=== PATIENT | female | born 1950 | race Caucasian/White ===

== ENCOUNTER 2017-08-11 16:52 | Emergency (ER) | payer MEDICAID, OTHER ==
--- NOTE | 2017-08-11 17:25 | EDPHY ---
General - History Smoking Status: Former smoker Time Seen by Provider: 08/11/17 17:17 Narrative: CHIEF COMPLAINT: Dizzy, nausea, vomiting, short of breath HISTORY OF PRESENT ILLNESS: Patient presents by private vehicle with complaint of dizziness, nausea, vomiting, shortness of breath and sweating. The symptoms started abruptly this morning around 5:00 a.m.. She had just woken ambulated. She does describe this as a spinning dizziness sensation she has no chest pain but does have some shortness of breath. No cough. No headache. No neck pain or stiffness. No fever. She has no abdominal pain. No diarrhea constipation. No trauma or injury. She says that the symptoms are worsening with movement at times. There is no alleviating factor. No numbness, tingling or weakness. No unilateral complaints. No other associated complaints or modifying factors. REVIEW OF SYSTEMS: Ten systems reviewed and are negative unless otherwise noted in the HPI PCP: [facility] SPECIALISTS: [facility] PAST MEDICAL HISTORY: Hypertension, dyslipidemia PAST SURGICAL HISTORY: Tonsillectomy and hysterectomy remotely SOCIAL HISTORY: Never smoker. Occasional marijuana use. Retired lives here independently. FAMILY HISTORY: Noncontributory EXAMINATION General Appearance: Alert, no distress. Diaphoretic. Well-developed well- nourished. Head: normocephalic, atraumatic Eyes: Pupils equal and round, no conjunctival pallor or injection. Mild horizontal nystagmus without any vertical nystagmus. No dysconjugate gaze. EOMs are symmetric. ENT, Mouth: Mucous membranes moist Neck: Normal inspection, supple, non-tender Respiratory: Mildly tachypneic. Lungs are clear with out any wheezing, rhonchi or crackles. Cardiovascular: Regular rate and rhythm. No murmur. Gastrointestinal: Abdomen is soft and nontender. Bowel sounds are auscultated in all 4 quadrants. There is no tympany. No rigidity. No guarding. No distention. Back: non-tender, no bony abnormalities Neurological: GCS 15. A&O, nonfocal, strength is symmetric in all limbs. no pronator drift. normal finger to nose. NIH scale 0. Skin: Warm and diaphoretic. Grossly intact. No petechiae or purpura. Extremities: Nontender, no pedal edema Psychiatric: Anxious Mood and affect DIFFERENTIAL DIAGNOSES: Including but not limited to vertigo, CVA, TIA, small-bowel obstruction, dehydration, ACS, pneumonia MDM: 5:20 p.m. Nausea, vomiting, shortness of breath since 5:00 a.m. This morning. She does have mild tachypnea but she is afebrile, she is not tachycardic. She is awake alert no acute distress but her blood pressure is elevated but she has no headache. She does have some dizziness with this, thus I have ordered cardiac workup and have discussed with Dr. Carr. He will evaluate the patient. Neuro exam is well within normal limits with horizontal nystagmus only. 5:55 p.m. Patient has been evaluated by Dr. Carr. She has provided more information and pertain to a chiropractic adjustment last week, and she is now complaining of headache and some neck pain. He recommends CT head and CT angio of head and neck. 6:58 p.m Case discussed with radiologist Dr. Ramires. CT scans of the head, angiography of the head and neck reveal no acute findings. There is some disc bulge at C4-5 , 5-6. 7:15 p.m. Patient re-evaluated. Her urinalysis does show concentration dehydration, thus I have ordered IV fluid. She states she is feeling somewhat better but not resolved. No vomiting in the past 30 min. I have ordered 0.5 Ativan IV. Her pressure is still slightly elevated, but she denies any headache or chest pain. I have discussed this with Dr. Carr. We will evaluate for response to Ativan fluid. 8:08 p.m. Patient re-evaluated. She has received 0.5 Ativan IV, 500 mL of normal saline IV. She is feeling significantly better and her blood pressure has decreased to 166mmHg systolic without any antihypertensives. She has no headache. She has no chest pain. She has ambulated in the emergency department with minimal nausea. She would like to go home and I do feel she is stable to do so. We will treat her with meclizine and low-dose Ativan. We discussed contacting her [place] physician 1st thing in the morning for evaluation tomorrow without fail. We discussed returning here for symptoms are not completely resolved by tomorrow or sooner for any headache, chest pain, dizziness or vomiting. She is comfortable this plan and discharged home stable condition. SUPERVISION: Patient was evaluated and examined in conjunction with my secondary supervising physician as documented. We have both examined the patient. (Marco Zhang) - Diagnostics Imaging Results: Imaging Impressions Chest X-Ray 08/11/17 17:26 Impression: Normal chest x-ray. Head CT 08/11/17 17:54 Impression: 1. No significant intracranial abnormality seen. The patient subsequently underwent CT angiogram of the head and neck. Findings discussed with [facility] PAC at 1855 hour, 08/11/2017. Head CTA 08/11/17 17:54 Impression: 1. Normal CT angiogram of the neck. 2. Normal CT angiogram of the teller of Rao, as detailed above. 3. Moderate disk bulges with associated spinal and neuroforaminal stenoses at C4 -C5 and at C5-C6. 4. 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 Note: All calculations were performed using NASCET criteria. Findings discussed with [facility] PAC at 18:57 hour, 08/11/2017. Neck CTA 08/11/17 17:54 Impression: 1. Normal CT angiogram of the neck. 2. Normal CT angiogram of the teller of Rao, as detailed above. 3. Moderate disk bulges with associated spinal and neuroforaminal stenoses at C4 -C5 and at C5-C6. 4. 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 Note: All calculations were performed using NASCET criteria. Findings discussed with [facility] PAC at 18:57 hour, 08/11/2017. - Objective Vital Signs: Initial Vital Signs Temperature (C) 97.5 F 08/11/17 17:10 Heart Rate 82 08/11/17 17:10 Respiratory Rate 24 H 08/11/17 17:10 Blood Pressure 200/78 H 08/11/17 17:10 O2 Sat (%) 99 08/11/17 17:10 O2 Delivery Mode Room Air Allergies/Adverse Reactions: No Known Allergies Allergy (Unverified 08/11/17 17:10) Home Medications: Medication Instructions Recorded LORazepam [Ativan] 0.5 mg PO TID PRN #9 tablet 08/11/17 Meclizine HCl [Meclizine HCl 12.5 12.5 mg PO BID PRN #12 tab 08/11/17 mg (*)] Laboratory Results: Laboratory Results 08/11/17 17:20 08/11/17 17:20 07/06/2408/11/17 08/11/17 18:45 17:41 17:20 WBC RBC Hgb Hct MCV MCH MCHC RDW Plt Count MPV Neut % (Auto) Lymph % (Auto) Bryan % (Auto) Eos % (Auto) Baso % (Auto) Nucleat RBC Rel Count Absolute Neuts (auto) Absolute Lymphs (auto) Absolute Monos (auto) Absolute Eos (auto) Absolute Basos (auto) Absolute Nucleated RBC Immature Gran % Immature Gran # PT 13.1 SEC SEC (12.0-15.0) INR 0.97 (0.83-1.16) APTT 22.9 SEC L SEC (23.0-38.0) Sodium Potassium Chloride Carbon Dioxide Anion Gap BUN Creatinine Estimated GFR Glucose Calcium Total Bilirubin Conjugated Bilirubin Unconjugated Bilirubin AST ALT Alkaline Phosphatase POC Troponin I 0.00 ng/mL ng/mL (0.00-0.08) NT-Pro-B Natriuret Pep Total Protein Albumin Lipase Urine Color YELLOW Urine Appearance HAZY Urine pH 7.0 (5.0-7.5) Ur Specific Gregory > 1.035 H (1.002-1.030) Urine Protein 2+ H (NEGATIVE) Urine Ketones 2+ H (NEGATIVE) Urine Blood NEGATIVE (NEGATIVE) Urine Nitrate NEGATIVE (NEGATIVE) Urine Bilirubin NEGATIVE (NEGATIVE) Urine Urobilinogen NEGATIVE EU EU (0.2-1.0) Ur Leukocyte Esterase NEGATIVE (NEGATIVE) Urine RBC 3-5 /hpf H /hpf (0-3) Urine WBC 5-10 /hpf H /hpf (0-3) Ur Epithelial Cells 1+ /lpf /lpf (NONE-1+) Urine Mucus TRACE /lpf /lpf (NONE-1+) Urine Glucose 1+ H (NEGATIVE) 08/11/17 08/11/17 17:20 17:20 WBC 14.12 10^3/uL H 10^3/uL (3.80-9.50) RBC 5.45 10^6/uL H 10^6/uL (4.18-5.33) Hgb 16.7 g/dL H g/dL (12.6-16.3) Hct 47.9 % H % (38.0-47.0) MCV 87.9 fL fL (81.5-99.8) MCH 30.6 pg pg (27.9-34.1) MCHC 34.9 g/dL g/dL (32.4-36.7) RDW 13.0 % % (11.5-15.2) Plt Count 384 10^3/uL 10^3/uL (150-400) MPV 8.7 fL fL (8.7-11.7) Neut % (Auto) 64.1 % % (39.3-74.2) Lymph % (Auto) 30.9 % % (15.0-45.0) Bryan % (Auto) 3.8 % L % (4.5-13.0) Eos % (Auto) 0.0 % L % (0.6-7.6) Baso % (Auto) 0.4 % % (0.3-1.7) Nucleat RBC Rel Count 0.0 % % (0.0-0.2) Absolute Neuts (auto) 9.05 10^3/uL H 10^3/uL (1.70-6.50) Absolute Lymphs (auto) 4.37 10^3/uL H 10^3/uL (1.00-3.00) Absolute Monos (auto) 0.53 10^3/uL 10^3/uL (0.30-0.80) Absolute Eos (auto) 0.00 10^3/uL L 10^3/uL (0.03-0.40) Absolute Basos (auto) 0.06 10^3/uL 10^3/uL (0.02-0.10) Absolute Nucleated RBC 0.00 10^3/uL 10^3/uL (0-0.01) Immature Gran % 0.8 % % (0.0-1.1) Immature Gran # 0.11 10^3/uL H 10^3/uL (0.00-0.10) PT INR APTT Sodium 141 mEq/L mEq/L (135-145) Potassium 3.3 mEq/L mEq/L (3.3-5.0) Chloride 106 mEq/L mEq/L (97-110) Carbon Dioxide 15 mEq/l L mEq/l (22-31) Anion Gap 20 mEq/L H mEq/L (8-16) BUN 12 mg/dL mg/dL (7-23) Creatinine 0.5 mg/dL L mg/dL (0.6-1.0) Estimated GFR > 60 Glucose 163 mg/dL H mg/dL (70-100) Calcium 10.6 mg/dL H mg/dL (8.5-10.4) Total Bilirubin 0.8 mg/dL mg/dL (0.1-1.4) Conjugated Bilirubin 0.3 mg/dL mg/dL (0.0-0.5) Unconjugated Bilirubin 0.5 mg/dL mg/dL (0.0-1.1) AST 34 IU/L IU/L (14-46) ALT 40 IU/L IU/L (9-52) Alkaline Phosphatase 105 IU/L IU/L (38-126) POC Troponin I NT-Pro-B Natriuret Pep 95 pg/mL pg/mL (0-125) Total Protein 8.3 g/dL H g/dL (6.3-8.2) Albumin 5.0 g/dL g/dL (3.5-5.0) Lipase 89 IU/L IU/L (23-300) Urine Color Urine Appearance Urine pH Ur Specific Gregory Urine Protein Urine Ketones Urine Blood Urine Nitrate Urine Bilirubin Urine Urobilinogen Ur Leukocyte Esterase Urine RBC Urine WBC Ur Epithelial Cells Urine Mucus Urine Glucose Medications Given: Discontinued Medications Sodium Chloride (Ns) 1,000 mls @ 0 mls/hr IV EDNOW ONE; Wide Open PRN Reason: Protocol Stop: 08/11/17 19:17 Last Admin: 08/11/17 19:24 Dose: 1,000 mls Lorazepam (Ativan Injection) 1 mg IVP EDNOW ONE Stop: 08/11/17 19:25 Last Admin: 08/11/17 19:25 Dose: 1 mg Meclizine HCl (Meclizine Hcl) 12.5 mg PO EDNOW ONE Stop: 08/11/17 17:27 Last Admin: 08/11/17 17:33 Dose: 12.5 mg Ondansetron HCl (Zofran) 4 mg IVP EDNOW ONE Stop: 08/11/17 17:27 Last Admin: 08/11/17 17:32 Dose: 4 mg Point of Care Test Results: Chemistry 08/11/17 17:41 POC Troponin I 0.00 ng/mL ng/mL (0.00-0.08) Departure - Departure Disposition: Home, Routine, Self-Care Clinical Impression: Vertigo Nausea & vomiting Qualifiers: Vomiting type: unspecified Vomiting Intractability: non-intractable Qualified Code(s): R11.2 - Nausea with vomiting, unspecified Condition: Good Instructions: Vertigo (ED), Acute Nausea and Vomiting (ED) Additional Instructions: 1. Medications as prescribed as needed 2. Contact your [place] primary care physician tomorrow morning for outpatient care to be seen tomorrow 3. Return here tomorrow if you are not completely resolved from your symptoms 4. Return to emergency department sooner for any headache, chest pain, dizziness , confusion, vomiting Referrals: Marito Craig MD [Medical Doctor] - As per Instructions [facility] ,. [Edm Groups for Call Sched] - As per Instructions Prescriptions: LORazepam [Ativan] 0.5 mg PO TID PRN #9 tablet PRN Reason: dizzy or nauseated Meclizine HCl [Meclizine HCl 12.5 mg (*)] 12.5 mg PO BID PRN #12 tab PRN Reason: Nausea/Vomiting, Use 1st
[2017-08-11] MEDS ORDERED: ONDANSETRON 4 MG/2 ML VIAL IVP ONE (17:26)
[2017-08-11] MEDS ORDERED: MECLIZINE HCL 25 MG TAB PO ONE (17:26)
--- NOTE | 2017-08-11 17:35 | CPEKG ---
Heart Rate: 80 RR Interval: 750 P-R Interval: 160 QRSD Interval: 88 QT Interval: 448 QTC Interval: 517 P [place]: 18 QRS [place]: 21 T Wave [place]: 15 EKG Severity - ABNORMAL ECG - EKG Impression: SINUS RHYTHM EKG Impression: PROLONGED QT INTERVAL Electronically Signed By: Pk Carr 11-Aug-2017 18:00:53
[2017-08-11 17:36] LABS: PLATELET COUNT 384 10^3/uL (150-400)
[2017-08-11 18:21] LABS: INR 0.97 (0.83-1.16); PROTIME(PATIENT) 13.1 SEC (12.0-15.0)
[2017-08-11] MEDS ORDERED: IOPAMIDOL (ISOVUE 370) 100 ML BTL IV ONE (18:22)
[2017-08-11] MEDS ORDERED: NS 1,000 ML IV ONE (19:16)
[2017-08-11] MEDS ORDERED: LORazepam 2 MG/ML INJ ONE (19:18)
[2017-08-11] MEDS ORDERED: LORazepam 2 MG/ML INJ IVP ONE (19:24)
[2017-08-11 20:43] VITALS: BP 172/89
== END 2017-08-11 20:47 | disposition home or self-care (01) ==
DX: R42 Dizziness and giddiness (principal); R11.2 Nausea with vomiting, unspecified; I10 Essential (primary) hypertension; R06.02 Shortness of breath
CPT/HCPCS: 70450; 70496; 70498; 71045; 93005; 96374; 96375; 99285; J2060; J2405; Q9967; 84484-PO